=== PATIENT | male | born 1940 | race Caucasian/White ===

== ENCOUNTER 2019-10-11 08:50 | Day surgery (SDC) | payer MEDICARE, OTHER ==
[~2019-10-11] VITALS: Ht 172.7 cm; Wt 60.3 kg
[2019-10-11] VITALS (12 sets, daily range): BP systolic 153–182; BP diastolic 88–104
[2019-10-11] MEDS ORDERED: normal saline 1000ml 1,000 ML IV SCH (09:15)
[2019-10-11] MEDS ORDERED: heparin sodium, porcine/PF 100unit/ml 5ML syringe ONE (09:47)
[2019-10-11] MEDS ORDERED: midazolam 2 mg/2 ml injection ONE (09:47)
[2019-10-11] MEDS ORDERED: LIDOcaine 1%/PF 5ML 10 MG/ML VIAL ONE (09:47)
[2019-10-11] MEDS ORDERED: fentaNYL/PF 50MCG/1 ML 2ML syringe ONE (09:48)
[2019-10-11] MEDS ORDERED: VERA240C3 PO (09:59)
[2019-10-11] MEDS ORDERED: LEVO137T2 PO (09:59)
[2019-10-11] MEDS ORDERED: VERA120C3 PO (09:59)
[2019-10-11] MEDS ORDERED: ENAL20TA PO (09:59)
[2019-10-11] MEDS ORDERED: TRAM100T40 (10:06)
[2019-10-11] MEDS ORDERED: MAGN400C PO (10:06)
[2019-10-11] MEDS ORDERED: CYAN50003 PO (10:06)
[2019-10-11] MEDS ORDERED: FLAX100031 PO (10:06)
[2019-10-11] MEDS ORDERED: VITA400C67 PO (10:06)
[2019-10-11] MEDS ORDERED: FERR-28 PO (10:06)
[2019-10-11] MEDS ORDERED: CHOL400T57 PO (10:06)
== END 2019-10-11 12:30 | disposition home or self-care (01) ==
LOC: SSTAY O 08:50
PROVIDERS: ATTEND Radiology Vascular & Interventional Radiology
DX: C67.2 Malignant neoplasm of lateral wall of bladder (principal); J90 Pleural effusion, not elsewhere classified; Z87.891 Personal history of nicotine dependence; Z98.890 Other specified postprocedural states; Z79.899 Other long term (current) drug therapy
CPT/HCPCS: 32555; 36561; 71045; 76937; 77001; 99152; 99153; C1769; C1788; C1894; J1642; J2250; J3010; J7030